=== PATIENT | female | born 1990 | race African-American/Black ===

== ENCOUNTER → 2018-03-01 | Outpatient (CLI) | payer SELFPAY ==
[2018-03-01 15:35] LABS: Basophils # (A) 0.1 k/uL (0-0.2); Basophils % (A) 0 %; Eosinophils # (A) 0.1 k/uL (0-0.7); Eosinophils % (A) 1 %; HCT 36.2 % (34.0-46.0); Lymphocytes # (A) 2.6 k/uL (1.0-4.8); Lymphocytes % (A) 21 %; MCH 30.5 pg (25.0-35.0); MCHC 33.3 g/dL (31.0-37.0); MCV 91.8 fL (80.0-100.0); Mean Platelet Volume 7.4; Monocytes # (A) 0.6 k/uL (0-1.0); Monocytes % (A) 4 %; Neutrophils # (A) 9.4 k/uL (1.3-7.7); Neutrophils % (A) 73 %; Platelet Count 263 k/uL (150-450); RBC 3.94 m/uL (3.80-5.40); RDW 12.6 % (11.5-15.5); WBC 12.8 k/uL (3.8-10.6)
== END | disposition home or self-care (01) ==
LOC: LABWHC1 14:55
PROVIDERS: ATTEND Obstetrics & Gynecology
DX: Z01.812 Encounter for preprocedural laboratory examination (principal); O02.1 Missed abortion; Z3A.00 Weeks of gestation of pregnancy not specified
CPT/HCPCS: 36415; 85025; 86850; 86900; 86901

== ENCOUNTER → 2018-03-02 | Day surgery (SDC) | payer OTHER ==
[~2018-03-02] MED LIST: Acetaminophen-Codeine 300-30mg TAB PO PRN; IBUPROFEN 600 MG TAB PO PRN; KETOROLAC 30 MG/ML 1 ML VIAL IVP PRN; KETOROLAC 30 MG/ML 1 ML VIAL ONE; LACTATED RINGERS 1,000 ML IV ONE; LACTATED RINGERS 1,000 ML IV SCH; LIDOCAINE 1% 20 ML VIAL (10MG/ML) FOR IV START INTRADERMA ONE; MEPERIDINE 50 MG/ML SYRINGE IVP ONE; METHYLERGONOVINE 0.2 MG/ML 1 ML AMP ONE; METOCLOPRAMIDE 5 MG/ML 2 ML VIAL IVP PRN; MIDAZOLAM 2 MG/2 ML VIAL IVP ONE; MIDAZOLAM 2 MG/2 ML VIAL ONE; ONDANSETRON 4 MG/2 ML VIAL IVP ONE; ONDANSETRON 4 MG/2 ML VIAL IVP PRN; PROPOFOL 10 MG/ML 20 ML VIAL IV ONE; SIMETHICONE 80 MG CHEWABLE PO PRN; diphenhydrAMINE 50 MG/ML 1 ML VIAL IVP PRN; fentaNYL (PF) 50 MCG/ML 2 ML AMP ONE
[2018-03-02 10:27] VITALS: TEMP 97.2
--- NOTE | 2018-03-02 10:28 | P.OP ---
Date of Procedure: 03/02/18 Preoperative Diagnosis: #1. 8+ weeks missed Postoperative Diagnosis: Same Procedure(s) Performed: #1. Dilation and aspiration curettage Anesthesia: other (Gen. by face mask) Surgeon: Gurprete Croft Estimated Blood Loss (ml): 500 IV fluids (ml): 700 Urine output (ml): 100 Pathology: other (Uterine contents) Condition: stable Disposition: PACU Operative Findings: Preoperatively, the patient had undergone an office ultrasound 1 week ago at approximately 8+ weeks which demonstrated a roughly 8 week crown-rump length with no heart rate present. She then underwent serial beta hCGs over the course of 3 days at which time the hormone level was noted to be falling. Both of these findings confirmed the diagnosis and the patient was counseled and agreed to undergo the procedure as outlined above. She was taken to the operating room where she was found preoperatively to have a roughly 8-9 week retroverted normal but slightly boggy uterus. Intraoperatively, the uterus sounded to approximately 13 cm. There was tissue seen passing through the tubing on the first 2 passes. The sharp curette produced a small amount of further tissue but the typical gritty texture was encountered throughout. Following sharp curettage, no further tissue was seen passing through the tubing. There was a moderate amount of bleeding with the case resulting in one dose of Methergine being given by anesthesia intraoperatively. Description of Procedure: The patient was prepped and draped in usual fashion after general anesthesia was administered by the anesthesiologist. A weighted speculum was placed and the bladder was drained of approximately 100 mL of clear ileana urine. The anterior lip of the cervix was grasped with a single-tooth tenaculum and the uterus was sounded to 13 cm as noted above. Serial dilation was carried out to admit a #9 curved aspiration curet which was placed to the fundus of the uterus and suction applied. Once adequate suction had been built, thorough and circumferential suction curettage was carried out from the fundus to the cervix with tissue seen passing through the tubing on a regular basis. A second pass was made at which time there was minimal further tissue passing through the tubing. The suction curet was set aside in favor of a sharp curet which was utilized to thoroughly and circumferentially curet the endometrial lining which had the typical gritty texture. There was a very small amount of tissue returned with this. 2 further passes were made with the aspiration curet to ensure no retained products. Following the procedure, the uterine size was moderately smaller than it had been prior to the case. A small point of bleeding at the site of the tenaculum was made hemostatic with pressure. There was no significant ongoing bleeding from the cervix or any other sites. Prior to finishing the case, as there was a moderate amount of bleeding throughout and the uterus continued to feel somewhat boggy, Methergine 0.2 mg had been given by the anesthesiologist. Estimated blood loss for the entire case was approximately 500 mL. There were no complications. All sponge, instrument, and needle counts were correct. The patient tolerated the procedure well and proceeded to the recovery room in stable condition.
[2018-03-02 10:41] VITALS: RESP 16
[2018-03-02 11:09] VITALS: BP 118/61; PULSE 57
== END | disposition home or self-care (01) ==
LOC: OR 08:06
PROVIDERS: ATTEND Obstetrics & Gynecology
DX: O02.1 Missed abortion (principal); F39 Unspecified mood [affective] disorder; F17.200 Nicotine dependence, unspecified, uncomplicated; Z79.899 Other long term (current) drug therapy
CPT/HCPCS: 88305; 59820; J2250; J2210; J2175; J2405; J3010; J1885; J2704

== ENCOUNTER 2018-03-06 09:57 | Emergency (ER) | payer BC, OTHER ==
[2018-03-06 10:08] VITALS: RESP 18
[2018-03-06 11:05] LABS: Basophils # (A) 0.1 k/uL (0-0.2); Basophils % (A) 1 %; Eosinophils % (A) 0 %; Lymphocytes # (A) 1.5 k/uL (1.0-4.8); Lymphocytes % (A) 18 %; MCH 30.3 pg (25.0-35.0); MCHC 32.5 g/dL (31.0-37.0); MCV 93.3 fL (80.0-100.0); Mean Platelet Volume 7.3; Monocytes # (A) 0.4 k/uL (0-1.0); Monocytes % (A) 5 %; Neutrophils # (A) 6.3 k/uL (1.3-7.7); Neutrophils % (A) 75 %; Platelet Count 246 k/uL (150-450); RBC 3.11 m/uL (3.80-5.40); WBC 8.4 k/uL (3.8-10.6)
[2018-03-06 11:07] LABS: HGB 9.4 gm/dL (11.4-16.0)
[2018-03-06 11:09] LABS: ALT 24 U/L (9-52); AST 13 U/L (14-36); Albumin 3.6 g/dL (3.5-5.0); Alkaline Phosphatase 50 U/L (38-126); Anion Gap 11 mmol/L; Blood Urea Nitrogen 6 mg/dL (7-17); Calcium 8.8 mg/dL (8.4-10.2); Carbon Dioxide 22 mmol/L (22-30); Chloride 109 mmol/L (98-107); Glucose 88 mg/dL (74-99); Potassium 3.9 mmol/L (3.5-5.1); Sodium 142 mmol/L (137-145); Total Bilirubin 0.3 mg/dL (0.2-1.3); Total Protein 6.3 g/dL (6.3-8.2)
[2018-03-06 12:26] VITALS: TEMP 98.2
[2018-03-06] MEDS ORDERED: SODIUM CHLORIDE 0.9% 1,000 ML IV STA (12:41)
--- NOTE | 2018-03-06 13:51 | ED ---
General Adult HPI - General Chief complaint: Vaginal Bleeding Stated complaint: Vaginal Bleeding-Post Op Time Seen by Provider: 03/06/18 12:33 Source: patient, RN notes reviewed Mode of arrival: ambulatory Limitations: no limitations - History of Present Illness Initial comments: Patient is a 28-year-old female presenting to the emergency room today with chief complaint of increased vaginal bleeding. She does admit that she had a D& C due to a miscarriage at 8 weeks 4 days ago. Patient says she's had some bleeding. She states proximal hour prior to arrival she had some heavy bleeding. She states she had to change multiple pads. Patient states she was bleeding slowed down at this point. She admits that she's had some cramping in the abdomen something different at this time. She denies any other complaints. Denies any dizziness or lightheadedness. Patient denies any recent fever, chills, shortness of breath, chest pain, back pain, dysuria or hematuria, constipation or diarrhea, headaches or visual changes, or any other complaints. - Related Data Home Medications Medication Instructions Recorded Confirmed Docusate [Colace] 100 mg PO DAILY 03/06/18 03/06/18 Allergies Allergy/AdvReac Type Severity Reaction Status Date / Time No Known Allergies Allergy Verified 03/06/18 11:47 Review of Systems ROS Statement: Those systems with pertinent positive or pertinent negative responses have been documented in the HPI. ROS Other: All systems not noted in ROS Statement are negative. Past Medical History Past Medical History: No Reported History History of Any Multi-Drug Resistant Organisms: None Reported Past Surgical History: Adenoidectomy Additional Past Surgical History / Comment(s): HX LEEP SURGERY, D&C Past Anesthesia/Blood Transfusion Reactions: No Reported Reaction Past Psychological History: ADD/ADHD, Anxiety, Bipolar, Depression Smoking Status: Current every day smoker Past Alcohol Use History: None Reported Past Drug Use History: Marijuana General Exam - General Exam Comments Initial Comments: General: The patient is awake and alert, in no distress, and does not appear acutely ill. Eye: Pupils are equal, round and reactive to light, extra-ocular movements are intact. No nystagmus. There is normal conjunctiva bilaterally. No signs of icterus. Ears, nose, mouth and throat: There are moist mucous membranes and no oral lesions. Neck: The neck is supple, there is no tenderness or JVD. Cardiovascular: There is a regular rate and rhythm. No murmur, rub or gallop is appreciated. Respiratory: Lungs are clear to auscultation, respirations are non-labored, breath sounds are equal. No wheezes, stridor, rales, or rhonchi. Gastrointestinal: Soft, non-distended, non-tender abdomen without masses or organomegaly noted. There is no rebound or guarding present. No CVA tenderness. Musculoskeletal: Normal ROM, no tenderness. Strength 5/5. Sensation intact. Pulses equal bilaterally 2+. Neurological: A&O x 3. CN II-XII intact, There are no obvious motor or sensory deficits. Coordination appears grossly intact. Speech is normal. Skin: Skin is warm and dry and no rashes or lesions are noted. Psychiatric: Cooperative, appropriate mood & affect, normal judgment. : DIRECTOR OF QUALITY IMPROVEMENTVICTOR MANUEL Butts present for exam. Patient did have a few small clots in the vaginal canal. No active bleeding at this time. Limitations: no limitations Course Vital Signs 03/06/18 03/06/18 10:06 12:14 Temperature 98.8 F 98.2 F Pulse Rate 93 70 Respiratory 18 18 Rate Blood Pressure 127/65 111/56 O2 Sat by Pulse 100 100 Oximetry Medical Decision Making - Medical Decision Making Options were discussed with patient about all shot at this time. Bleeding has essentially stopped here the emergency room. She denies any dizziness or lightheadedness. Her vitals are stable. Hemoglobin reviewed is 9.4. Patient has chronic ultrasound. States feels comfortable being discharged home to follow-up with COLLECTION SYSTEMS TECHNICIAN. She is advised to return if any symptoms increase or worsen or for any other concerns. - Lab Data Result diagrams: 03/06/18 10:38 03/06/18 10:38 Lab Results 03/06/18 03/06/18 Range/Units 10:38 10:38 WBC 8.4 (3.8-10.6) k/uL RBC 3.11 L (3.80-5.40) m/uL Hgb 9.4 L D (11.4-16.0) gm/dL Hct 29.0 L (34.0-46.0) % MCV 93.3 (80.0-100.0) fL MCH 30.3 (25.0-35.0) pg MCHC 32.5 (31.0-37.0) g/dL RDW 13.0 (11.5-15.5) % Plt Count 246 (150-450) k/uL Neutrophils % 75 % Lymphocytes % 18 % Monocytes % 5 % Eosinophils % 0 % Basophils % 1 % Neutrophils # 6.3 (1.3-7.7) k/uL Lymphocytes # 1.5 (1.0-4.8) k/uL Monocytes # 0.4 (0-1.0) k/uL Eosinophils # 0.0 (0-0.7) k/uL Basophils # 0.1 (0-0.2) k/uL Sodium 142 (137-145) mmol/L Potassium 3.9 (3.5-5.1) mmol/L Chloride 109 H (98-107) mmol/L Carbon Dioxide 22 (22-30) mmol/L Anion Gap 11 mmol/L BUN 6 L (7-17) mg/dL Creatinine 0.70 (0.52-1.04) mg/dL Est GFR (CKD-EPI)AfAm >90 (>60 ml/min/1.73 sqM) Est GFR (CKD-EPI)NonAf >90 (>60 ml/min/1.73 sqM) Glucose 88 (74-99) mg/dL Calcium 8.8 (8.4-10.2) mg/dL Total Bilirubin 0.3 (0.2-1.3) mg/dL AST 13 L (14-36) U/L ALT 24 (9-52) U/L Alkaline Phosphatase 50 (38-126) U/L Total Protein 6.3 (6.3-8.2) g/dL Albumin 3.6 (3.5-5.0) g/dL Disposition Clinical Impression: Vaginal bleeding Disposition: HOME SELF-CARE Condition: Good Instructions: Dysfunctional Uterine Bleeding (ED) Additional Instructions: Please follow-up the COLLECTION SYSTEMS TECHNICIAN tomorrow. Please return here to the emergency room if any symptoms increase or worsen or for any other concerns as discussed. Is patient prescribed a controlled substance at d/c from ED?: No Referrals: Costa Light MD [Primary Care Provider] - 1-2 days Gurpreet Croft MD [STAFF PHYSICIAN] - 1-2 days Time of Disposition: 13:50
[2018-03-06 14:09] VITALS: BP 118/73; PULSE 71
== END 2018-03-06 14:09 | disposition home or self-care (01) ==
LOC: EC 09:57
DX: N93.9 Abnormal uterine and vaginal bleeding, unspecified (principal); F17.200 Nicotine dependence, unspecified, uncomplicated; Z98.890 Other specified postprocedural states; Z79.899 Other long term (current) drug therapy
CPT/HCPCS: 36415; 80053; 85025; 99284

== ENCOUNTER 2019-02-04 13:21 | Outpatient (CLI) | payer OTHER ==
[2019-02-04 15:12] VITALS: BP 125/78; PULSE 100; RESP 16; TEMP 97.3
[2019-02-04] MEDS ORDERED: BETAMET ACET-BETAMETH SOD PHOS 6 MG/ML VIAL IM SCH (15:15)
--- NOTE | 2019-03-08 10:10 | P.MSEPDOC ---
Presenting Problems - Arrival Data Date of Arrival on Unit: 02/04/19 Time of Arrival on Unit: 13:21 Mode of Transport: Ambulatory - Complaint OB-Reason for Admission/Chief Complaint: Rule Out PROM Comment: pt arrived c/o a gush of fluid this morning Medical History - Information : 2 Para: 0 Term: 0 : 0 Abortions: Spontaneous or Elective: 1 Number of Living Children: 0 - Gestational Age Gestational Age by LEILANI (wks/days): 24 Weeks and 3 Days - History Complications: Smoker Review of Systems - Review of Systems Constitutional: No problems Breast: No problems ENT: No problems Cardiovascular: No problems Respiratory: No problems Gastrointestinal: No problems Genitourinary: No problems Musculoskeletal: No problems Neurological: No problems Skin: No problems Vital Signs - Temperature Temperature: 97.3 F Temperature Source: Oral - Pulse Right Brachial Pulse Rate: 100 Pulse Assessment Method: Automatic Cuff - Respirations Respiratory Rate: 16 Oxygen Delivery Method: Room Air - Blood Pressure Right Arm Blood Pressure: 125/78 Blood Pressure Mean: 93 Blood Pressure Source: Automatic Cuff Medical Screen Scoring (Pre) - Cervical Exam Dilation: 0 cm = 0 Membranes: Intact - Uterine Contractions Frequency: N/A Duration: N/A Intensity: N/A - Maternal Vital Signs Maternal Temperature: N/A Maternal Blood Pressure: N/A Signs of Preeclampsia: N/A Maternal Respirations: N/A - Maternal Trauma Maternal Trauma: N/A - Assessment Baseline FHR: 140 Position: N/A Station: N/A - Total Score Total Score (Pre): 0 - Level of Risk Level of Risk: Low (0-5) Physician Notification (Post) - Physician Notified Physician Notified Date: 02/04/19 Physician Notified Time: 15:15 Spoke With: dr pardo New Order Received: Yes - Notification Comment Comment: celestone 12mg now and return to L/D in 24 hrs for second dose of celestone. fibronectin. may discharge to home undelivered with instructions Disposition - Disposition OB Disposition: Discharge to home Discharge Date: 02/04/19 Discharge Time: 15:15 I agree with the RN Medical Screening Exam: Yes Risk & Benefit of care provided described in d/c instruction: Yes Diagnosis: RELATED CONDITIONS, UNSPECIFIED, SECOND TRIMESTER
== END 2019-02-04 15:15 | disposition home or self-care (01) ==
LOC: FBPOP 13:21
PROVIDERS: ATTEND Obstetrics & Gynecology
DX: O26.92 Pregnancy related conditions, unspecified, second trimester (principal); Z3A.24 24 weeks gestation of pregnancy
CPT/HCPCS: 84112; 82731; G0463; J0702; 99213

== ENCOUNTER 2019-02-05 15:25 | Outpatient (CLI) | payer OTHER ==
[2019-02-05] MEDS ORDERED: BETAMET ACET-BETAMETH SOD PHOS 6 MG/ML VIAL IM SCH (15:45)
--- NOTE | 2019-03-08 10:12 | P.MSEPDOC ---
Presenting Problems - Arrival Data Date of Arrival on Unit: 02/05/19 Time of Arrival on Unit: 15:30 Mode of Transport: Ambulatory - Complaint Comment: second celestone injection Physician Notification (Pre) - Physician Notified Physician Notified Date: 02/05/19 Physician Notified Time: 15:35 Physician/Practitioner Notifed:: char Spoke With: char New Order Received: Yes - Notification Comment Comment: no nst or monitoring required. second dose of celestone to be given and discharge pt home Disposition - Disposition OB Disposition: Discharge to home Discharge Date: 02/05/19 Discharge Time: 16:08 I agree with the RN Medical Screening Exam: Yes Risk & Benefit of care provided described in d/c instruction: Yes Diagnosis: RELATED CONDITIONS, UNSPECIFIED, SECOND TRIMESTER
== END 2019-02-05 16:11 | disposition home or self-care (01) ==
LOC: FBPOP 15:25
PROVIDERS: ATTEND Obstetrics & Gynecology
DX: O26.92 Pregnancy related conditions, unspecified, second trimester (principal); Z3A.00 Weeks of gestation of pregnancy not specified
CPT/HCPCS: 96372; J0702

== ENCOUNTER 2019-04-12 01:05 | Outpatient (CLI) | payer OTHER ==
[2019-04-12 01:53] VITALS: BP 132/77; PULSE 93; RESP 18; TEMP 96.6
--- NOTE | 2019-04-20 09:42 | P.MSEPDOC ---
Presenting Problems - Arrival Data Date of Arrival on Unit: 04/12/19 Time of Arrival on Unit: 01:05 Mode of Transport: Ambulatory - Complaint OB-Reason for Admission/Chief Complaint: Decreased Movement Comment: no movement felt since 1529 yesterday Medical History - Information : 2 Para: 0 Term: 0 : 0 Abortions: Spontaneous or Elective: 0 Number of Living Children: 0 - Gestational Age Gestational Age by LEILANI (wks/days): 34 Weeks and 0 Days - History Comment: shortened cervix, celestone shots have been given Review of Systems - Review of Systems Constitutional: No problems Breast: No problems ENT: No problems Cardiovascular: No problems Respiratory: No problems Gastrointestinal: No problems Genitourinary: No problems Musculoskeletal: No problems Neurological: No problems Skin: No problems Vital Signs - Temperature Temperature: 96.6 F Temperature Source: Temporal Artery Scan - Pulse Right Brachial Pulse Rate: 93 Pulse Assessment Method: Automatic Cuff - Respirations Respiratory Rate: 18 Oxygen Delivery Method: Room Air - Blood Pressure Right Arm Blood Pressure: 132/77 Blood Pressure Mean: 95 Blood Pressure Source: Automatic Cuff Medical Screen Scoring (Pre) - Cervical Exam Dilation: Exam Deferred Effacement: Exam Deferred Membranes: Intact - Uterine Contractions Frequency: N/A Duration: N/A Intensity: N/A - Maternal Vital Signs Maternal Temperature: N/A Maternal Blood Pressure: N/A Signs of Preeclampsia: N/A Maternal Respirations: N/A - Maternal Trauma Maternal Trauma: N/A - Assessment - Baby A Baseline FHR: 120 Heart Rate - NICHD Category: Category I (Normal) = 0 NST: Reactive Position: N/A Station: N/A - Total Score - Baby A Total Score - Baby A: 0 - Total Score - Baby B Total Score - Baby B: 0 - Total Score - Baby C Total Score - Baby C: 0 - Level of Risk - Baby A Level of Risk - Baby A: Low (0-5) - Level of Risk - Baby B Level of Risk - Baby B: Low (0-5) - Level of Risk - Baby C Level of Risk - Baby C: Low (0-5) Physician Notification (Pre) - Physician Notified Physician Notified Date: 04/12/19 Physician Notified Time: 01:34 Physician/Practitioner Notifed:: Dr. Guaman Spoke With: Dr. Guaman New Order Received: Yes - Notification Comment Comment: discharge pt home, follow up at next scheduled appt Disposition - Disposition OB Disposition: Triage, Discharge to home, Written follow up instructions reviewed Discharge Date: 04/12/19 Discharge Time: 01:42 I agree with the RN Medical Screening Exam: Yes Risk & Benefit of care provided described in d/c instruction: Yes Diagnosis: DECREASED MOVEMENTS, THIRD TRIMESTER, FETUS 1
== END 2019-04-12 01:42 | disposition home or self-care (01) ==
LOC: FBPOP 01:05
PROVIDERS: ATTEND Obstetrics & Gynecology
DX: O36.8131 Decreased fetal movements, third trimester, fetus 1 (principal); Z3A.34 34 weeks gestation of pregnancy
CPT/HCPCS: 59025; G0463; 99213

== ENCOUNTER 2019-05-16 14:32 | Inpatient (IN) | payer OTHER ==
--- NOTE | 2019-05-16 15:53 | US ---
EXAMINATION TYPE: US OB limited DATE OF EXAM: 05/16/2019 COMPARISON: US CLINICAL HISTORY: unable to obtain heart tones. EXAM PERFORMED: Transabdominal (TA) limited US for heart rate GESTATIONAL AGE / DATING Physician Established: (38 weeks/6 days) EDC: 05/24/19 Dates by Current Scan: Not assessed No growth performed on today?s study SURVEY (PRESENTATION: Vertex HEART RATE: no heart rate is detected by color flow in any body cavity or in [address] to assess rate rate. Patient's RN notified of STAT US tech findings at exam's end of very limited OB US. IMPRESSION: Limited survey. Findings compatible with demise.
[2019-05-16] MEDS ORDERED: OXYTOCIN 10 UNIT/ML 1 ML VIAL IM PRN (16:27)
[2019-05-16] MEDS ORDERED: METHYLERGONOVINE 0.2 MG/ML 1 ML AMP IM PRN (16:27)
[2019-05-16] MEDS ORDERED: CARBOPROST TROMETHAMINE 250 MCG/ML 1 ML AMP IM PRN (16:27)
[2019-05-16] MEDS ORDERED: TERBUTALINE 1 MG/ML VIAL SQ PRN (16:27)
[2019-05-16] MEDS ORDERED: LIDOCAINE 0.5% (PF) 5 MG/ML (50 ML SDV) SQ PRN (16:27)
[2019-05-16] MEDS ORDERED: OXYTOCIN 30 UNITS/500 ML NS 30 UNIT in SALINE 1 500ML.BAG IV SCH (16:30)
[2019-05-16] MEDS ORDERED: LACTATED RINGERS 1,000 ML IV SCH (16:30)
--- NOTE | 2019-05-16 16:41 | P.HPOB ---
History of Present Illness H&P Date: 05/16/19 Chief Complaint: 38-5/7 weeks, documented demise Patient is a 29-year-old 2 para 0010 admitted at 38-5/7 weeks as established by last menstrual period and confirmed by 11 week ultrasound. She is admitted with a complaint of decreased movement for less than 24 hours and found with no heart rate both on Doppler and confirmed by bedside ultrasound. She denies any history of trauma, drugs, or anything else unusual and the last 24 hours. She was last seen in the office yesterday for an appointment at 10:30 in the morning at which time heart tones were documented and a date set for induction next week. Her has been complicated by a history of a short cervical measurement with funneling of the membranes beginning at 19+ weeks. She was followed for the majority of the second and third trimester by maternal medicine with progesterone supplementation which was ultimately stopped at approximately 36 weeks of gestation. Aside from this, her has been uncomplicated. She does have a long-standing history of some psychiatric concerns and has been admitted as an inpatient in the past. Obstetrical history: 2 para 0010 with 1 previous early miscarriage requiring D&C. Current statistics are listed in history present illness. EDC of 05/24/2019 was established by last menstrual period and confirmed by an 11 week ultrasound. Laboratory workup demonstrates a blood type of A+ with a negative antibody screen. Rubella status is immune. The remainder of the laboratory workup was within normal limits aside from a positive urine drug screen for cannabinoids. One hour Glucola was within normal limits and group B strep status is negative. Gynecologic history: Unremarkable with no history of any infections to include STDs. Review of Systems Review of systems is confined to history of present illness. Past Medical History Past Medical History: No Reported History History of Any Multi-Drug Resistant Organisms: None Reported Past Surgical History: Adenoidectomy Additional Past Surgical History / Comment(s): HX LEEP SURGERY, D&C Past Anesthesia/Blood Transfusion Reactions: No Reported Reaction Smoking Status: Current every day smoker Medications and Allergies Home Medications Medication Instructions Recorded Confirmed Type Pnv,Calcium 72/Iron/Folic Acid 1 each PO DAILY 02/04/19 05/16/19 History [ Plus Tablet] Sertraline [Zoloft] 100 mg PO DAILY 02/04/19 05/16/19 History Allergies Allergy/AdvReac Type Severity Reaction Status Date / Time No Known Allergies Allergy Verified 05/16/19 15:04 Exam Vital Signs Temp Pulse Resp BP 05/16/19 15:07 98.8 F 92 18 117/60 Intake and Output 05/16/19 05/16/19 05/16/19 06:59 14:59 22:59 Other: Weight 97.976 kg In general, this is a well-developed well-nourished woman in appropriate distress as she is grieving the loss of her unborn baby. Her heart has a regular rhythm and rate without murmur. Her lungs are clear to auscultation bilaterally in all mendez. Her abdomen is gravid, nondistended, has normal active bowel sounds, soft, nontender, and without any palpable masses aside from uterine fundus. Her extremities are without any cyanosis, clubbing, or edema and are nontender to palpation bilaterally. Digital cervical examination demonstrates her cervix to be 2 cm dilated, 90% effaced, the vertex in presentation at -1 station. Artificial rupture of membranes is carried out demonstrating meconium-stained fluid. Assessment and Plan (1) demise Current Visit: Yes Status: Acute Code(s): QQI3308 - SNOMED Code(s): 692314946 (2) 38 weeks gestation of Current Visit: Yes Status: Acute Code(s): Z3A.38 - 38 WEEKS GESTATION OF SNOMED Code(s): 35620081 Plan: The patient is admitted for induction of labor. I have discussed with her that the most likely finding will be a cord accident of some sort. She is a candidate for either IV or epidural analgesia and will be offered either should she choose. We will have expectant management. I will prophylactically ask for a psychiatry consultation in order to potentially preempt ongoing problems in the future. Urine drug screen has been done per protocol. Further evaluation will await delivery of the .
[2019-05-16 16:50] LABS: Amphetamine Screen,Urine Not Detected (NotDetected); Barbiturate Screen,Urine Not Detected (NotDetected); Benzodiazepines Screen,Urine Not Detected (NotDetected); Cocaine Screen,Urine Not Detected (NotDetected); Methadone Screen, Urine Not Detected (NotDetected); Opiate Screen,Urine Not Detected (NotDetected); Oxycodone Screen, Urine Not Detected (NotDetected); Phencyclidine Screen,Urine Not Detected (NotDetected); Tricyclic Antidepressant,Urine Not Detected (NotDetected); Urn Cannabinoid Scrn Detected (NotDetected)
[2019-05-16 16:56] VITALS: BMI 33.8
[2019-05-16] MEDS ORDERED: BUTORPHANOL 1 MG/ML 1 ML VIAL IV PRN (17:25)
[2019-05-16 18:51] LABS: Basophils # (A) 0.1 k/uL (0-0.2); Basophils % (A) 0 %; Eosinophils # (A) 0.2 k/uL (0-0.7); Eosinophils % (A) 1 %; HCT 36.1 % (34.0-46.0); HGB 11.9 gm/dL (11.4-16.0); Lymphocytes # (A) 3.1 k/uL (1.0-4.8); Lymphocytes % (A) 16 %; MCH 31.5 pg (25.0-35.0); MCHC 32.9 g/dL (31.0-37.0); MCV 95.6 fL (80.0-100.0); Mean Platelet Volume 7.9; Monocytes % (A) 5 %; Neutrophils # (A) 15.5 k/uL (1.3-7.7); Neutrophils % (A) 77 %; Platelet Count 283 k/uL (150-450); RBC 3.78 m/uL (3.80-5.40); RDW 13.4 % (11.5-15.5); WBC 20.1 k/uL (3.8-10.6)
[2019-05-16] MEDS ORDERED: diphenhydrAMINE 50 MG/ML 1 ML VIAL IVP PRN ×2 (19:27)
[2019-05-16] MEDS ORDERED: diphenhydrAMINE 25 MG CAP PO PRN (19:27)
[2019-05-16] MEDS ORDERED: ZOLPIDEM 5 MG TAB PO PRN (19:27)
[2019-05-16] MEDS ORDERED: diphenhydrAMINE 50 MG CAP PO PRN (19:27)
[2019-05-16] MEDS ORDERED: WITCH HAZEL 1 EACH MED..PAD TOPICAL PRN (19:27)
[2019-05-16] MEDS ORDERED: HYDROCORTISONE 2.5% RECTAL CREAM 30 GM TUBE RECTAL PRN (19:27)
[2019-05-16] MEDS ORDERED: SIMETHICONE 80 MG CHEWABLE PO PRN (19:27)
[2019-05-16] MEDS ORDERED: BENZOCAINE/MENTHOL SPRAY 1 GM/SPRAY AEROSOL TOPICAL PRN (19:27)
[2019-05-16] MEDS ORDERED: IBUPROFEN 600 MG TAB PO PRN (19:27)
[2019-05-16] MEDS ORDERED: ACETAMINOPHEN TAB 325 MG TAB PO PRN (19:27)
[2019-05-16] MEDS ORDERED: OXYTOCIN 20 UNITS/1000 ML NS 1,000 ML IV SCH (19:30)
--- NOTE | 2019-05-16 19:33 | P.PROBDLV ---
Vaginal Delivery Note - . Vaginal Delivery Note: The patient is a 29-year-old 2 para 0010 admitted at 38-5/7 weeks by good dating parameters. She is admitted to triage initially with a complaint of decreased movement for all of today. Heart tones were unable to be identified either with Doppler with bedside ultrasound making the diagnosis of intrauterine demise. She was therefore admitted for induction of labor. Her was otherwise uncomplicated though she had concerns for a short c ervical length with funneling of the membranes beginning at 19 weeks. This was treated with bedrest and vaginal progesterone until 36 weeks without difficulty. She also has a history of some psychiatric concerns with significant depression and anxiety having been hospitalized in the past. She did not require any significant interventions during the aside from using Zoloft. On labor and delivery, she had artificial rupture of membranes carried out demonstrating what appeared to be meconium-stained fluid. Without Pitocin, she made rapid progress through the latent and active phase of labor to complete and then pushed over the course of approximately 10 minutes to a normal spontaneous vaginal delivery of a nonviable female infant, weight has not yet been checked in the occiput anterior position. During the process of delivering the placenta, the cord lacerated at the insertion to the placenta requiring manual extraction of the placenta which appeared to be otherwise intact. The area where the laceration occurred appeared to likely have been velamentous in its insertion. There was no evidence of any cord knots. The placenta was significantly calcified but otherwise appeared intact and normal. Examination of the infant demonstrated a grossly normal female with some sloughing of the skin being the only abnormality noted. There were no lacerations of the perineum, vagina, or cervix. Estimated blood loss for the case is approximately 500 mL. There were no complications aside from the need for manual extraction of the placenta. All sponge, instrument, and needle counts were correct. The patient is resting comfortably in recovery and appears to be grieving appropriately. She has a number of family members present with her.
[2019-05-16] MEDS: SENNOSIDES-DOCUSATE SODIUM 1 EACH TAB PO SCH (23:06)
[2019-05-17 07:39] VITALS: TEMP 97.8
[2019-05-17] MEDS: SENNOSIDES-DOCUSATE SODIUM 1 EACH TAB PO SCH (08:08)
[2019-05-17 08:44] VITALS: BP 124/75; PULSE 80; RESP 18
--- NOTE | 2019-05-17 12:11 | P.DS ---
Providers Date of admission: 05/16/19 15:40 Expected date of discharge: 05/17/19 Attending physician: Gurpreet Croft Consults: 05/16/19 16:30 Consult Physician Routine Consulting Provider: Omar Nichols Consult Reason/Comments: Long-standing history of mental illness, demise at 38+ weeks Do you want consulting provider notified?: Yes Primary care physician: Stated None - Discharge Diagnosis(es) (1) demise Status: Acute (2) 38 weeks gestation of Status: Acute Hospital Course: The patient is a 29-year-old 2 para 0010 admitted at 38-5/7 weeks by good dating parameters. She was seen in the office one day prior to admission at which time all findings were normal. She presented to triage in labor and delivery with a complaint of decreased movement at which time a demise was diagnosed by ultrasound. She is admitted for induction of labor with a very favorable cervix. She underwent artificial rupture of membranes demonstrating what appeared to be meconium-stained fluid. She made rapid progress through labor over the course of approximately 1-2 hours and then pushed to a normal spontaneous vaginal delivery of a nonviable 7 lbs. 11 oz. female. She did require manual removal of the placenta as the cord lacerated at the insertion into the placental disc. She had some short-term bleeding following delivery which resolved with IM Methergine. She was deemed stable for discharge the morning after delivery and was discharged home to follow-up in the office in 6 weeks' time routinely. A psychiatry consultation had been ordered as the patient has a long-standing history of depression and anxiety but was not completed prior to the patient's discharge. She is instructed to call for any significantly increased bleeding or foul-smelling lochia, fever, abdominal pain, perineal complaints, breast complaints, or anything else that concerned her. She was specifically counseled on calling for any psychiatric concerns. She understood her instructions and agrees to follow up as noted above. Discharge medications included only [id number] analgesic pain medications as necessary. Maternal blood type is Rh+ and rubella status is immune. Procedures: #1. Artificial rupture of membranes #2. Normal spontaneous vaginal delivery Patient Condition at Discharge: Stable Plan - Discharge Summary New Discharge Prescriptions: No Action Sertraline [Zoloft] 100 mg PO DAILY Pnv,Calcium 72/Iron/Folic Acid [ Plus Tablet] 1 each PO DAILY Discharge Medication List Pnv,Calcium 72/Iron/Folic Acid [ Plus Tablet] 1 each PO DAILY 02/04/19 [History] Sertraline [Zoloft] 100 mg PO DAILY 02/04/19 [History] Follow up Appointment(s)/Referral(s): Gurpreet Croft MD [STAFF PHYSICIAN] - 6 Weeks Discharge Disposition: HOME SELF-CARE
== END 2019-05-17 09:20 | disposition home or self-care (01) | DRG 806 ==
LOC: FBPOP 14:32 → 4FBP 15:40
PROVIDERS: ADMIT Obstetrics & Gynecology; ATTEND Obstetrics & Gynecology
PROC: 10907ZC Drainage of Amniotic Fluid, Therapeutic from Products of Conception, Via Natural or Artificial Opening (ICD-10-PCS; principal; 2019-05-16)
PROC: 10D17Z9 Manual Extraction of Products of Conception, Retained, Via Natural or Artificial Opening (ICD-10-PCS; principal; 2019-05-16)
PROC: 10E0XZZ Delivery of Products of Conception, External Approach (ICD-10-PCS; principal; 2019-05-16)
DX: O36.4XX0 Maternal care for intrauterine death, not applicable or unspecified (principal); O72.1 Other immediate postpartum hemorrhage; Z37.1 Single stillbirth; O99.344 Other mental disorders complicating childbirth; F32.9 Major depressive disorder, single episode, unspecified; F41.9 Anxiety disorder, unspecified; O77.0 Labor and delivery complicated by meconium in amniotic fluid; O99.334 Smoking (tobacco) complicating childbirth; F17.200 Nicotine dependence, unspecified, uncomplicated; Z3A.38 38 weeks gestation of pregnancy; Z79.899 Other long term (current) drug therapy; Z98.890 Other specified postprocedural states
CPT/HCPCS: 76815; 80306; 85025; 86850; 86900; 86901; 88307; 99213

== ENCOUNTER 2019-08-16 01:52 | Emergency (ER) | payer OTHER ==
[2019-08-16 02:31] LABS: Amphetamine Screen,Urine Not Detected (NotDetected); Barbiturate Screen,Urine Not Detected (NotDetected); Benzodiazepines Screen,Urine Not Detected (NotDetected); Cocaine Screen,Urine Not Detected (NotDetected); Methadone Screen, Urine Not Detected (NotDetected); Opiate Screen,Urine Not Detected (NotDetected); Oxycodone Screen, Urine Not Detected (NotDetected); Phencyclidine Screen,Urine Not Detected (NotDetected); Tricyclic Antidepressant,Urine Not Detected (NotDetected); Urn Cannabinoid Scrn Detected (NotDetected)
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
[2019-08-16 03:40] LABS: Appearance,Urine Cloudy (Clear); Bilirubin,Urine Negative (Negative); Blood,Urine Negative (Negative); Color,Urine Yellow; Glucose,Urine (UA) Negative (Negative); Ketones,Urine Negative (Negative); Leukocyte Esterase,Urine Negative (Negative); Mucus,Urine Many /hpf; Nitrite,Urine Negative (Negative); Protein,Urine Trace (Negative); RBC,Urine 2 /hpf (0-5); Specific Gravity,Urine 1.023 (1.001-1.035); Squamous Epithelial Cell,Urine 19 /hpf (0-4); Urobilinogen,Urine <2.0 mg/dL (<2.0); WBC,Urine 2 /hpf (0-5)
[2019-08-16 03:41] LABS: Basophils # (A) 0.1 k/uL (0-0.2); Basophils % (A) 1 %; Eosinophils # (A) 0.2 k/uL (0-0.7); Eosinophils % (A) 2 %; HCT 35.3 % (34.0-46.0); HGB 11.2 gm/dL (11.4-16.0); Lymphocytes % (A) 24 %; MCH 29.6 pg (25.0-35.0); MCHC 31.8 g/dL (31.0-37.0); MCV 93.2 fL (80.0-100.0); Mean Platelet Volume 6.2; Monocytes # (A) 0.5 k/uL (0-1.0); Monocytes % (A) 4 %; Neutrophils # (A) 8.4 k/uL (1.3-7.7); Neutrophils % (A) 68 %; Platelet Count 362 k/uL (150-450); RBC 3.78 m/uL (3.80-5.40); RDW 14.3 % (11.5-15.5); WBC 12.3 k/uL (3.8-10.6)
[2019-08-16 03:50] LABS: ALT 25 U/L (9-52); AST 24 U/L (14-36); African American GFR (CKD) >90 (>60 ml/min/1.73 sqM); Albumin 3.7 g/dL (3.5-5.0); Alkaline Phosphatase 56 U/L (38-126); Anion Gap 7 mmol/L; Blood Urea Nitrogen 12 mg/dL (7-17); Calcium 8.8 mg/dL (8.4-10.2); Carbon Dioxide 22 mmol/L (22-30); Chloride 113 mmol/L (98-107); Glucose 94 mg/dL (74-99); Potassium 3.7 mmol/L (3.5-5.1); Sodium 142 mmol/L (137-145); Total Bilirubin 0.2 mg/dL (0.2-1.3); Total Protein 6.6 g/dL (6.3-8.2)
[2019-08-16 08:36] VITALS: BP 134/87; PULSE 88; RESP 18; TEMP 98.8
[2019-08-16] MEDS ORDERED: LORazepam 2 MG/ML INJ IM STA (09:11)
== END 2019-08-16 12:03 ==
LOC: EC 01:52
DX: R45.851 Suicidal ideations (principal); F41.9 Anxiety disorder, unspecified; F31.9 Bipolar disorder, unspecified; F17.200 Nicotine dependence, unspecified, uncomplicated; Z79.899 Other long term (current) drug therapy
CPT/HCPCS: 82075; 36415; 80053; 85025; 81001; 81025; 80306; 99285; 96372; J2060

== ENCOUNTER 2020-04-11 23:19 | Emergency (ER) | payer OTHER ==
[2020-04-11 23:28] VITALS: BP 120/74; PULSE 66; RESP 18; TEMP 98.3
--- NOTE | 2020-04-11 23:47 | ED ---
General Adult HPI - General Chief complaint: Abdominal Pain Stated complaint: 18 Wks Preg, Abdominal Pain Time Seen by Provider: 04/11/20 23:34 Source: patient Mode of arrival: ambulatory Limitations: no limitations - History of Present Illness Initial comments: Adriana is a female currently 18w gestation with a twin . Patient reports that earlier today she had bent over and when she stood she felt a popping in the left side of her abdomen. She states that since that time she has noticed decreased movement on the left and wanted the baby to be checked. Denies any cramping or discomfort. She denies any vaginal discharge or bleeding. She's been following regularly with maternal- medicine. She was last was last year and resulted in a spontaneous at 38 weeks gestation. - Related Data Home Medications Medication Instructions Recorded Confirmed Escitalopram [Lexapro] 5 mg PO DAILY 08/16/19 08/16/19 lamoTRIgine [LaMICtal] 100 mg PO DAILY 08/16/19 08/16/19 Allergies Allergy/AdvReac Type Severity Reaction Status Date / Time No Known Allergies Allergy Verified 04/11/20 23:32 Review of Systems ROS Statement: Those systems with pertinent positive or pertinent negative responses have been documented in the HPI. ROS Other: All systems not noted in ROS Statement are negative. Past Medical History Past Medical History: No Reported History History of Any Multi-Drug Resistant Organisms: None Reported Past Surgical History: Adenoidectomy Additional Past Surgical History / Comment(s): HX LEEP SURGERY, D&C Past Anesthesia/Blood Transfusion Reactions: No Reported Reaction Past Psychological History: ADD/ADHD, Anxiety, Bipolar, Depression Smoking Status: Current every day smoker Past Alcohol Use History: None Reported Past Drug Use History: Marijuana - Past Family History Mother Family Medical History: No Reported History General Exam - General Exam Comments Initial Comments: Physical Exam GENERAL: Patient is well-developed and well-nourished. Patient is nontoxic and well-hydrated and is in no distress. HENT: Normocephalic, Atraumatic. EYES: PERRL, EOMI PULMONARY: Unlabored respirations. CARDIOVASCULAR: RRR Warm and well perfused extremities ABDOMEN: Gravid abdomen Nontender SKIN: No rashes or bruising : Deferred NEUROLOGIC: Alert and oriented Normal speech Normal gait MUSCULOSKELETAL: Moving all extremities with no apparent injury PSYCHIATRIC: No SI/HI Limitations: no limitations Course Vital Signs 04/11/20 23:24 Temperature 98.3 F Pulse Rate 66 Respiratory 18 Rate Blood Pressure 120/74 O2 Sat by Pulse 100 Oximetry Medical Decision Making - Medical Decision Making The patient was seen and evaluated history is obtained from the patient excited bedside ultrasound revealed 2 very active fetus, left fetus has a heart rate in the 150s noted on bedside ultrasound, right fetus has a heart rate in the 160s on ultrasound. Both are very active and moving. Mother felt very reassured by this bed side ultrasound and at this time is asking to be discharged home. Patient plans to follow with maternal med twin on Monday for reevaluation. Disposition Clinical Impression: Decreased movement during in second trimester, antepartum Disposition: HOME SELF-CARE Condition: Stable Additional Instructions: Call Dr Crespo or [facility] on Monday for follow up visit and formal ultrasound Is patient prescribed a controlled substance at d/c from ED?: No Referrals: Costa Light MD [Primary Care Provider] - 1-2 days
== END 2020-04-11 23:55 | disposition home or self-care (01) ==
LOC: EC 23:19
DX: O36.8120 Decreased fetal movements, second trimester, not applicable or unspecified (principal); O30.002 Twin pregnancy, unspecified number of placenta and unspecified number of amniotic sacs, second trimester; O99.342 Other mental disorders complicating pregnancy, second trimester; F41.9 Anxiety disorder, unspecified; F31.9 Bipolar disorder, unspecified; O99.332 Smoking (tobacco) complicating pregnancy, second trimester; F17.200 Nicotine dependence, unspecified, uncomplicated; Z79.899 Other long term (current) drug therapy; Z3A.18 18 weeks gestation of pregnancy
CPT/HCPCS: 99283

== ENCOUNTER 2020-05-11 09:07 | Outpatient (CLI) | payer OTHER ==
[2020-05-11 10:36] VITALS: BP 114/66; PULSE 77; RESP 16; TEMP 98.3
--- NOTE | 2020-05-29 19:14 | P.MSEPDOC ---
Presenting Problems - Arrival Data Date of Arrival on Unit: 05/11/20 Time of Arrival on Unit: 09:10 Mode of Transport: Ambulatory - Complaint OB-Reason for Admission/Chief Complaint: Decreased Movement Comment: pt arrived to unit 22 week gestation with twins c/o decreased movement Medical History - Information : 3 Para: 0 Term: 0 : 0 Abortions: Spontaneous or Elective: 1 Number of Living Children: 0 - Gestational Age Gestational Age by LEILANI (wks/days): 22 Weeks and 4 Days Review of Systems - Review of Systems Constitutional: No problems Breast: No problems ENT: No problems Cardiovascular: No problems Respiratory: No problems Gastrointestinal: No problems Genitourinary: No problems Musculoskeletal: No problems Neurological: No problems Skin: No problems Vital Signs - Temperature Temperature: 98.3 F Temperature Source: Oral - Pulse Right Brachial Pulse Rate: 77 Pulse Assessment Method: Automatic Cuff - Respirations Respiratory Rate: 16 Oxygen Delivery Method: Room Air - Blood Pressure Right Arm Blood Pressure: 114/66 Blood Pressure Mean: 82 Blood Pressure Source: Automatic Cuff Medical Screen Scoring (Pre) - Cervical Exam Dilation: Exam Deferred Effacement: Exam Deferred Membranes: Intact - Uterine Contractions Frequency: N/A - Maternal Vital Signs Maternal Temperature: N/A Signs of Preeclampsia: N/A Maternal Respirations: N/A - Maternal Trauma Maternal Trauma: N/A - Assessment - Baby A Baseline FHR: 135 - Assessment - Baby B Baseline FHR: 140 - Total Score - Baby A Total Score - Baby A: 0 - Total Score - Baby B Total Score - Baby B: 0 - Total Score - Baby C Total Score - Baby C: 0 - Level of Risk - Baby A Level of Risk - Baby A: Low (0-5) - Level of Risk - Baby B Level of Risk - Baby B: Low (0-5) - Level of Risk - Baby C Level of Risk - Baby C: Low (0-5) Physician Notification (Pre) - Physician Notified Physician Notified Date: 05/11/20 Physician Notified Time: 10:20 New Order Received: Yes - Notification Comment Comment: efm applied with both babies doppler infant moving. may discharge to home with instructions Disposition - Disposition OB Disposition: Discharge to home Discharge Date: 05/11/20 Discharge Time: 10:22 I agree with the RN Medical Screening Exam: Yes Risk & Benefit of care provided described in d/c instruction: Yes Diagnosis: DECREASED MOVEMENTS, SECOND TRIMESTER, FETUS 1
== END 2020-05-11 10:22 | disposition home or self-care (01) ==
LOC: FBPOP 09:07
PROVIDERS: ATTEND Obstetrics & Gynecology
DX: O36.8121 Decreased fetal movements, second trimester, fetus 1 (principal); Z3A.22 22 weeks gestation of pregnancy
CPT/HCPCS: 99213

== ENCOUNTER 2020-06-27 22:38 | Outpatient (CLI) | payer OTHER ==
[2020-06-27] MEDS ORDERED: LACTATED RINGERS 1,000 ML IV SCH (23:30)
[2020-06-27 23:58] LABS: Appearance,Urine Clear (Clear); Bacteria,Urine Rare /hpf; Bilirubin,Urine Negative (Negative); Blood,Urine Negative (Negative); Color,Urine Colorless; Glucose,Urine (UA) Negative (Negative); Ketones,Urine Negative (Negative); Leukocyte Esterase,Urine Large (Negative); Nitrite,Urine Negative (Negative); Protein,Urine Negative (Negative); RBC,Urine 3 /hpf (0-5); Specific Gravity,Urine 1.002 (1.001-1.035); Squamous Epithelial Cell,Urine 4 /hpf (0-4); Urobilinogen,Urine <2.0 mg/dL (<2.0); WBC,Urine 21 /hpf (0-5)
[2020-06-28 00:12] VITALS: BP 114/56; PULSE 85; RESP 16; TEMP 98.3
--- NOTE | 2020-07-23 17:06 | P.MSEPDOC ---
Presenting Problems - Arrival Data Date of Arrival on Unit: 06/28/20 Time of Arrival on Unit: 22:38 Mode of Transport: Wheelchair - Complaint OB-Reason for Admission/Chief Complaint: Pain Comment: Pt c/o pain in pelvic area, intermittent back pain Medical History - Information : 3 Para: 1 Term: 1 : 0 Abortions: Spontaneous or Elective: 1 Number of Living Children: 0 - Gestational Age Gestational Age by LEILANI (wks/days): 29 Weeks and 3 Days - History Complications: Other Comment: short cervix, hx of full term demise Review of Systems - Review of Systems Constitutional: No problems Breast: No problems ENT: No problems Cardiovascular: No problems Respiratory: No problems Gastrointestinal: No problems Genitourinary: No problems Musculoskeletal: No problems Neurological: No problems Skin: No problems Vital Signs - Temperature Temperature: 98.3 F Temperature Source: Oral - Pulse Right Radial Pulse Rate: 85 Pulse Assessment Method: Pulse Oximetry - Respirations Respiratory Rate: 16 Oxygen Delivery Method: Room Air O2 Sat by Pulse Oximetry: 97 - Blood Pressure Right Arm Blood Pressure: 114/56 Blood Pressure Mean: 75 Blood Pressure Source: Automatic Cuff Medical Screen Scoring (Pre) - Cervical Exam Dilation: Exam Deferred Effacement: Exam Deferred Membranes: Intact - Uterine Contractions Frequency: N/A Duration: N/A Intensity: N/A - Maternal Vital Signs Maternal Temperature: N/A Maternal Blood Pressure: N/A Signs of Preeclampsia: N/A Maternal Respirations: N/A - Maternal Trauma Maternal Trauma: N/A - Assessment - Baby A Position: N/A Station: N/A - Total Score - Baby A Total Score - Baby A: 0 - Total Score - Baby B Total Score - Baby B: 0 - Total Score - Baby C Total Score - Baby C: 0 - Level of Risk - Baby A Level of Risk - Baby A: Low (0-5) - Level of Risk - Baby B Level of Risk - Baby B: Low (0-5) - Level of Risk - Baby C Level of Risk - Baby C: Low (0-5) Physician Notification (Pre) - Physician Notified Physician Notified Date: 06/27/20 Physician Notified Time: 23:29 New Order Received: Yes - Notification Comment Comment: Obtain FFN, sterile vag exam, start IV and give 1L bolus of LR. Offer IV tylenol if pt would like it. Medical Screen Scoring (Post) - Cervical Exam Dilation: 1-3 cm = 1 Membranes: Intact - Uterine Contractions Frequency: > 5 minutes apart = 1 Duration: > 40 seconds = 2 Intensity: N/A - Maternal Vital Signs Maternal Temperature: N/A Maternal Blood Pressure: N/A Signs of Preeclampsia: N/A Maternal Respirations: N/A - Pain Assessment Pain Scale Used: Numeric (1 - 10) Pain Intensity: 3 Pain Management Goal: 3 Pain Description: *Acute Pain Frequency: Constant Non-Pharmacological Interventions: Darkened Room, Distraction, Heat - Maternal Trauma Maternal Trauma: N/A - Assessment - Baby A Position: N/A Station: N/A - Total Score Total Score - Baby A: 4 Total Score - Baby B: 4 Total Score - Baby C: 4 - Post Treatment Level of Risk Post Treatment Level of Risk - Baby A: Low (0-5) Post Treatment Level of Risk - Baby B: Low (0-5) Post Treatment Level of Risk - Baby C: Low (0-5) Physician Notification (Post) - Physician Notified Physician Notified Date: 06/28/20 Physician Notified Time: 01:05 Physician/Practitioner Notified:: Mary Spoke With: Mary New Order Received: Yes - Notification Comment Comment: DC home with DC instructions (pelvic rest, drink fluids, empty bladder at least Q2H) - see obix charting for more details. Disposition - Disposition OB Disposition: Discharge to home Discharge Date: 06/28/20 Discharge Time: 01:22 I agree with the RN Medical Screening Exam: Yes Risk & Benefit of care provided described in d/c instruction: Yes Diagnosis: FALSE LABOR BEFORE 37 COMPLETED WEEKS OF GEST, THIRD TRI
== END 2020-06-28 01:22 | disposition home or self-care (01) ==
LOC: FBPOP 22:38
PROVIDERS: ATTEND Obstetrics & Gynecology Obstetrics
DX: O47.03 False labor before 37 completed weeks of gestation, third trimester (principal); Z3A.29 29 weeks gestation of pregnancy
CPT/HCPCS: 96360; 82731; 81001; G0463; 96361; 99213; 99214

== ENCOUNTER 2020-07-13 20:03 | Outpatient (CLI) | payer OTHER ==
[2020-07-13 21:30] LABS: Basophils # (A) 0.1 k/uL (0-0.2); Basophils % (A) 0 %; Eosinophils # (A) 0.1 k/uL (0-0.7); Eosinophils % (A) 1 %; HGB 10.4 gm/dL (11.4-16.0); Lymphocytes # (A) 3.2 k/uL (1.0-4.8); Lymphocytes % (A) 21 %; MCH 32.1 pg (25.0-35.0); MCHC 33.4 g/dL (31.0-37.0); MCV 96.1 fL (80.0-100.0); Mean Platelet Volume 8.1; Monocytes # (A) 0.7 k/uL (0-1.0); Monocytes % (A) 5 %; Neutrophils # (A) 10.9 k/uL (1.3-7.7); Neutrophils % (A) 72 %; Platelet Count 280 k/uL (150-450); RBC 3.23 m/uL (3.80-5.40); WBC 15.2 k/uL (3.8-10.6)
[2020-07-13] MEDS ORDERED: BETAMET ACET-BETAMETH SOD PHOS 6 MG/ML MDV IM SCH (21:30)
[2020-07-13] MEDS ORDERED: LACTATED RINGERS 1,000 ML IV SCH (21:30)
[2020-07-13] MEDS ORDERED: MAGNESIUM SULFATE GM 6 GM in SODIUM CHLORIDE 0.9% 100 ML IVPB STA (21:47)
[2020-07-13] MEDS ORDERED: CALCIUM GLUCONATE 1 GM/10 ML VIAL IV PRN (21:47)
[2020-07-13] MEDS ORDERED: PENICILLIN G POTASSIUM 5,000,000 UNIT in DEXTROSE 5% IN WATER 100 ML IVPB STA ×2 (21:59)
[2020-07-13] MEDS ORDERED: MAGNESIUM SULFATE-WATER PMX 20 GM in WATER FOR INJECTION 1 500ML.BAG IV SCH (22:00)
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
--- NOTE | 2020-07-13 22:07 | P.DS ---
Providers Date of admission: 07/13/2020 Expected date of discharge: 07/13/20 Attending physician: Carolina Dinh Primary care physician: Gurpreet [facility] [place] Course: This is a 30-year-old black female 3 para 1010 EDC 09/10/2020 at 31-4/7 weeks' gestation with a known dichorionic diamniotic twin . She presented with a history of questionable ruptured membranes. Amnio sure testing was negative, however cervix was noted to be 4 cm dilated, 80% effaced, -2 station, vertex presentation. She is sagar on the monitor approximately every 7 minutes apart, but is not cognizant of the contractions. She feels occasional back pain. Fetus is been active throughout the . She denies any vaginal bleeding and no recent intercourse. Please see admitting history and physical for details. I discussed the case with Dr. Gonzalez at [facility]. [facility] is not accepting transfer secondary to unavailability of the intensive care unit. I have given 6 g loading dose magnesium sulfate, then 2 g per hour maintenance dose. We have given betamethasone. We have given penicillin G 5 million units prophylactically. Patient will be transferred via ambulance to [facility] and try. Patient is aware of the risks benefits and alternatives of this plan. In my best medical judgment I feel that the patient is stable for transfer. No cervical change has been noted since her admission here, over the course of greater than an hour. Patient Condition at Discharge: Stable Plan - Discharge Summary Discharge Rx Participant: No New Discharge Prescriptions: No Action Pnv,Calcium 72/Iron/Folic Acid [ Plus Tablet] 1 each PO DAILY Sertraline [Zoloft] 100 mg PO DAILY Multivitamin [Multivitamins Adult Gummies] 1 each PO DAILY Progesterone, Micronized [Progesterone] 200 mg PO DAILY Discharge Medication List Multivitamin [Multivitamins Adult Gummies] 1 each PO DAILY 05/11/20 [History] Pnv,Calcium 72/Iron/Folic Acid [ Plus Tablet] 1 each PO DAILY 05/11/20 [History] Sertraline [Zoloft] 100 mg PO DAILY 05/11/20 [History] Progesterone, Micronized [Progesterone] 200 mg PO DAILY 06/27/20 [History] Discharge Disposition: OTHER INSTITUTION NOT DEFINED
== END 2020-07-13 22:40 | disposition other institution (70) ==
LOC: FBPOP 20:03
PROVIDERS: ATTEND Obstetrics & Gynecology
DX: O60.03 Preterm labor without delivery, third trimester (principal); O30.043 Twin pregnancy, dichorionic/diamniotic, third trimester; Z3A.31 31 weeks gestation of pregnancy; F17.210 Nicotine dependence, cigarettes, uncomplicated; F32.9 Major depressive disorder, single episode, unspecified; O99.333 Smoking (tobacco) complicating pregnancy, third trimester; O99.343 Other mental disorders complicating pregnancy, third trimester
CPT/HCPCS: 59025; 96361; 96365; 96367; 96372; 84112; 85025; G0463; J3475 ×2; J2540; J0702; 99215

== ENCOUNTER 2020-08-01 16:51 | Inpatient (IN) | payer OTHER ==
[2020-08-01] MEDS ORDERED: METHYLERGONOVINE 0.2 MG/ML 1 ML AMP IM PRN (17:06)
[2020-08-01] MEDS ORDERED: OXYTOCIN 10 UNIT/ML 1 ML VIAL IM PRN (17:06)
[2020-08-01] MEDS ORDERED: TERBUTALINE 1 MG/ML VIAL SQ PRN (17:06)
[2020-08-01] MEDS ORDERED: CARBOPROST TROMETHAMINE 250 MCG/ML 1 ML AMP IM PRN (17:06)
[2020-08-01] MEDS ORDERED: LIDOCAINE 0.5% (PF) 5 MG/ML (50 ML SDV) SQ PRN (17:06)
[2020-08-01] MEDS ORDERED: LACTATED RINGERS 1,000 ML IV SCH (17:15)
[2020-08-01 17:30] LABS: Basophils % (A) 0 %; Eosinophils # (A) 0.1 k/uL (0-0.7); Eosinophils % (A) 1 %; HCT 38.8 % (34.0-46.0); HGB 12.5 gm/dL (11.4-16.0); Lymphocytes # (A) 2.2 k/uL (1.0-4.8); Lymphocytes % (A) 18 %; MCH 31.2 pg (25.0-35.0); MCHC 32.2 g/dL (31.0-37.0); MCV 96.7 fL (80.0-100.0); Mean Platelet Volume 8.5; Monocytes # (A) 0.6 k/uL (0-1.0); Monocytes % (A) 5 %; Neutrophils # (A) 9.2 k/uL (1.3-7.7); Neutrophils % (A) 75 %; Platelet Count 279 k/uL (150-450); RBC 4.01 m/uL (3.80-5.40); RDW 13.2 % (11.5-15.5); WBC 12.2 k/uL (3.8-10.6)
--- NOTE | 2020-08-01 17:41 | US ---
EXAMINATION TYPE: US OB limited DATE OF EXAM: 08/01/2020 COMPARISON: NONE CLINICAL HISTORY: position. EXAM PERFORMED: Transabdominal (TA) GESTATIONAL AGE / DATING Physician Established: (34 weeks/2 days) EDC: 09/10/2020 Dates by Current Scan: No growth performed on today?s study per ordering physician SURVEY Baby A: PRESENTATION: Vertex LIE: Longitudinal HEART RATE: 142 bpm RHYTHM: Normal Baby B: PRESENTATION: Vertex LIE: Longitudinal HEART RATE: 128 bpm RHYTHM: Normal Dr Tremp present during US exam IMPRESSION: Limited exam shows twin intrauterine fetuses with both having cephalic presentation.
[2020-08-01] MEDS ORDERED: HYDROCORTISONE 2.5% RECTAL CREAM 30 GM TUBE RECTAL PRN (18:24)
[2020-08-01] MEDS ORDERED: diphenhydrAMINE 50 MG CAP PO PRN (18:24)
[2020-08-01] MEDS ORDERED: diphenhydrAMINE 50 MG/ML 1 ML VIAL IVP PRN ×2 (18:24)
[2020-08-01] MEDS ORDERED: diphenhydrAMINE 25 MG CAP PO PRN (18:24)
[2020-08-01] MEDS ORDERED: IBUPROFEN 600 MG TAB PO PRN (18:24)
[2020-08-01] MEDS ORDERED: ZOLPIDEM 5 MG TAB PO PRN (18:24)
[2020-08-01] MEDS ORDERED: SIMETHICONE 80 MG CHEWABLE PO PRN (18:24)
[2020-08-01] MEDS ORDERED: LANOLIN CREAM 5 GM TUBE TOPICAL PRN (18:24)
[2020-08-01] MEDS ORDERED: BENZOCAINE/MENTHOL SPRAY 1 GM/SPRAY AEROSOL TOPICAL PRN (18:24)
[2020-08-01] MEDS ORDERED: ACETAMINOPHEN TAB 325 MG TAB PO PRN (18:24)
[2020-08-01] MEDS ORDERED: OXYTOCIN 20 UNITS/1000 ML NS 1,000 ML IV SCH (18:30)
--- NOTE | 2020-08-01 18:35 | P.HPOB ---
History of Present Illness H&P Date: 08/01/20 Chief Complaint: Twin gestation at 34 and 2/sevenths weeks, labor This is a 30-year-old 3 para 1010 at 34-2/7 weeks estimated date of confinement 09/10/20 based on 8 week ultrasound. Patient has been receiving routine care with Dr. Croft and [facility] given history of shortened cervix with funneling. Patient has a known history of a term demise in addition. Patient is a tobacco smoker. Patient was seen at [facility] yesterday noting babies to be in vertex vertex presentation. Patient states they offered to keep and monitor her and sh e declined. Patient states she started sagar this morning irregularly but when the contractions started to become longer in duration she decided to come to the hospital. Upon presentation she was noted to be 8/100/0 station. She did deny vaginal bleeding or loss of fluid. She noted good movement 2. Patient received betamethasone on 07/16 per patient. On bloodwork patient is blood type of A+, rubella status immune, RPR nonreactive, hepatitis B surface antigen negative, HIV was declined. She did pass her gestational diabetes screen. Review of Systems Constitutional: Denies chills, Denies fatigue, Denies fever Ears, nose, mouth and throat: Denies headache Cardiovascular: Reports leg edema Respiratory: Denies dyspnea Gastrointestinal: Denies constipation, Denies diarrhea, Denies nausea, Denies vomiting Genitourinary: Reports Past Medical History Past Medical History: No Reported History Additional Past Medical History / Comment(s): Depression History of Any Multi-Drug Resistant Organisms: None Reported Past Surgical History: Adenoidectomy Additional Past Surgical History / Comment(s): HX LEEP SURGERY, D&C Past Anesthesia/Blood Transfusion Reactions: No Reported Reaction Smoking Status: Current every day smoker - Past Family History Mother Family Medical History: No Reported History Medications and Allergies Home Medications Medication Instructions Recorded Confirmed Type Multivitamin [Multivitamins Adult 1 each PO DAILY 05/11/20 07/27/20 History Gummies] Pnv,Calcium 72/Iron/Folic Acid 1 each PO DAILY 05/11/20 07/27/20 History [ Plus Tablet] Sertraline [Zoloft] 100 mg PO DAILY 05/11/20 07/27/20 History Progesterone, Micronized 400 mg PO DAILY 06/27/20 07/27/20 History [Progesterone] Allergies Allergy/AdvReac Type Severity Reaction Status Date / Time amoxicillin Allergy Itching Verified 08/01/20 17:06 Exam Osteopathic Statement: *. No significant issues noted on an osteopathic structural exam other than those noted in the History and Physical/Consult. 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 Breathing is noted to be nonlabored, heart has a regular rate and rhythm, abdomen is gravid, heart tones are noted to be reassuring 2 ultrasound is in the room documenting vertex vertex presentation. On cervical exam she is 9/100/+1 station Results Result Diagrams: 08/01/20 17:15 Abnormal Lab Results - Last 24 Hours (Table) 08/01/20 Range/Units 17:15 WBC 12.2 H (3.8-10.6) k/uL Neutrophils # 9.2 H (1.3-7.7) k/uL Assessment and Plan (1) Twin gestation in third trimester Current Visit: Yes Status: Acute Code(s): O30.003 - TWIN PREG, UNSP NUM PLCNTA & AMNIO SACS, THIRD TRIMESTER SNOMED Code(s): 25133937 (2) Active labor Current Visit: Yes Status: Acute Code(s): ENW4499 - SNOMED Code(s): 641543349 (3) 34 weeks gestation of Current Visit: Yes Status: Acute Code(s): Z3A.34 - 34 WEEKS GESTATION OF SNOMED Code(s): 80841560 (4) Normal spontaneous vaginal delivery Current Visit: No Status: Acute Code(s): O80 - ENCOUNTER FOR FULL-TERM UNCOMPLICATED DELIVERY SNOMED Code(s): 63928628 Plan: This 30-year-old with known twin dye dye gestation at 34-2/7 weeks presents to labor and delivery with complaints of regular painful contractions. Patient has been noted 8 cm upon presentation to labor and delivery. Patient was counseled on vaginal delivery as babies were noted to be vertex/vertex. Patient wishes to proceed. We will proceed to operating suite. Patient is counseled on the possibility of emergent if baby B is noted to be in distress or changes position. Patient states understanding and wishes to proceed. Patient declines epidural or Stadol.
--- NOTE | 2020-08-01 18:39 | P.PROBDLV ---
Vaginal Delivery Note - . Vaginal Delivery Note: This 30-year-old 3 para 1010 presents to labor and delivery at 34-2/7 weeks with complaints of contractions. Patient was noted to be 8 cm upon presentation. Patient is a known twin gestation with di/di placentation. Patient was taken back to the operating suite when she was noted to be 9 cm. The OR suite was set up with /vaginal delivery in the case of needed emergent after delivery of baby A. Patient was noted to be completely dilated amniotomy was performed clear fluid was obtained baby A was noted to be in vertex presentation and with 2 strong maternal efforts was delivered in the usual fashion. The local cord was doubly clamped and cut and the was handed off to awaiting RN. Infant B was then noted to be high in the uterus, vertex presentation with one contraction B was noted to be -1 station, amniotomy is performed clear fluid was obtained, with the next contraction and a strong maternal effort B was delivered in the usual fashion. The umbilical cord was doubly clamped and cut and infant B was handed off to awaiting RN. The placentas were then delivered spontaneously intact with a three-vessel cord x2. Uterus is noted to be firm and at the umbilicus. Estimated blood loss 200 mL On inspection the patient's vaginal vault no lacerations were noted. All counts are correct 2 at the end of delivery Patient and infants tolerated delivery well.
[2020-08-01] MEDS: SENNOSIDES-DOCUSATE SODIUM 1 EACH TAB PO SCH (21:01)
--- NOTE | 2020-08-02 04:22 | P.DS ---
Providers Date of admission: 08/01/20 17:00 Expected date of discharge: 08/02/20 Attending physician: Judy Hernandez Primary care physician: Stated None - Discharge Diagnosis(es) (1) Twin gestation in third trimester Current Visit: Yes Status: Acute (2) Active labor Current Visit: Yes Status: Acute (3) 34 weeks gestation of Current Visit: Yes Status: Acute (4) Normal spontaneous vaginal delivery Current Visit: No Status: Acute Hospital Course: This is a 22-year-old 3 para 1010 that presented to labor and delivery at 34-2/7 weeks with an estimated due date of 09/10. Patient is a known twin di/di gestation and has been followed closely for a shortened cervix. Patient was noted to be 8 cm on presentation to the hospital. Patient was taken back to the operating suite was noted to be completely dilated a was delivered at 1758, weight of 2175 gms, B delivered at 1804, weight of 2104gms. patient did not sustain any vaginal lacerations during delivery. 's were transferred to children's secondary to gestational age. Patient's course has been uneventful so far her lochia has been moderate, her pain is we ll-controlled. She would like discharge home as soon as possible due to infant transferred. She is pumping and getting a small amount of colostrum at this time. She is ambulating and voiding without difficulty, tolerating regular diet without nausea or vomiting. Patient Condition at Discharge: Good Plan - Discharge Summary New Discharge Prescriptions: No Action Pnv,Calcium 72/Iron/Folic Acid [ Plus Tablet] 1 each PO DAILY Sertraline [Zoloft] 100 mg PO DAILY Multivitamin [Multivitamins Adult Gummies] 1 each PO DAILY Progesterone, Micronized [Progesterone] 400 mg PO DAILY Discharge Medication List Multivitamin [Multivitamins Adult Gummies] 1 each PO DAILY 05/11/20 [History] Pnv,Calcium 72/Iron/Folic Acid [ Plus Tablet] 1 each PO DAILY 05/11/20 [History] Sertraline [Zoloft] 100 mg PO DAILY 05/11/20 [History] Progesterone, Micronized [Progesterone] 400 mg PO DAILY 06/27/20 [History] Follow up Appointment(s)/Referral(s): Gurpreet Croft MD [STAFF PHYSICIAN] - 6 Weeks Patient Instructions/Handouts: Vaginal Delivery (DC), Vaginal Delivery (GEN) Discharge Disposition: HOME SELF-CARE
[2020-08-02 04:43] VITALS: RESP 18
[2020-08-02 08:27] VITALS: BP 114/77; PULSE 76; TEMP 97.8
[2020-08-02] MEDS: SENNOSIDES-DOCUSATE SODIUM 1 EACH TAB PO SCH (08:28)
== END 2020-08-02 10:18 | disposition home or self-care (01) | DRG 806 ==
LOC: FBPOP 16:51 → 4FBP 17:00
PROVIDERS: ADMIT Obstetrics & Gynecology Obstetrics; ATTEND Obstetrics & Gynecology Obstetrics
PROC: 10E0XZZ Delivery of Products of Conception, External Approach (ICD-10-PCS; principal; 2020-08-01)
PROC: 10907ZC Drainage of Amniotic Fluid, Therapeutic from Products of Conception, Via Natural or Artificial Opening (ICD-10-PCS; 2020-08-01)
DX: O30.043 Twin pregnancy, dichorionic/diamniotic, third trimester (principal); O26.873 Cervical shortening, third trimester; Z37.2 Twins, both liveborn; O99.343 Other mental disorders complicating pregnancy, third trimester; F17.200 Nicotine dependence, unspecified, uncomplicated; O99.334 Smoking (tobacco) complicating childbirth; F32.9 Major depressive disorder, single episode, unspecified; Z3A.34 34 weeks gestation of pregnancy; Z79.899 Other long term (current) drug therapy; Z87.59 Personal history of other complications of pregnancy, childbirth and the puerperium; Z88.0 Allergy status to penicillin
CPT/HCPCS: 76815; 85025; 86850; 86900; 86901

== ENCOUNTER 2020-11-01 07:22 | Emergency (ER) | payer OTHER ==
[2020-11-01 07:27] VITALS: RESP 18; TEMP 98.4
[2020-11-01] MEDS ORDERED: SODIUM CHLORIDE 0.9% 500 ML 500 ML IV STA (07:43)
[2020-11-01] MEDS ORDERED: SODIUM CHLORIDE 0.9% 1,000 ML IV STA (07:43)
--- NOTE | 2020-11-01 07:46 | ED ---
Abdominal Pain HPI - General Chief Complaint: Abdominal Pain Stated Complaint: Abdominal Pain Time Seen by Provider: 11/01/20 07:39 Source: patient, RN notes reviewed Mode of arrival: ambulatory Limitations: no limitations - History of Present Illness Initial Comments: This is a 30-year-old female presents emergency from chief complaint abdominal pain, diarrhea. Patient states she's been having loose stools for over 3 months she states it started presented for . Patient states she delivered 3 months ago when vaginally. Patient denies any vaginal bleeding or discharge. Patient states that she had a bowel movement morning states that she started having increased abdominal pain, rectal pain denies any bleeding hemorrhoids. Patient states that she feels like she has to urinate but has not urinated this morning. Patient denies any fevers or chills no nausea vomiting no prior abdominal surgeries. - Related Data Home Medications Medication Instructions Recorded Confirmed Multivitamin [Multivitamins Adult 1 each PO DAILY 05/11/20 07/27/20 Gummies] Pnv,Calcium 72/Iron/Folic Acid 1 each PO DAILY 05/11/20 07/27/20 [ Plus Tablet] Sertraline [Zoloft] 100 mg PO DAILY 05/11/20 07/27/20 Progesterone, Micronized 400 mg PO DAILY 06/27/20 07/27/20 [Progesterone] Previous Rx's Medication Instructions Recorded Ibuprofen [Motrin] 600 mg PO Q8HR PRN #20 tab 11/01/20 Allergies Allergy/AdvReac Type Severity Reaction Status Date / Time amoxicillin Allergy Itching Verified 11/01/20 07:27 Review of Systems ROS Statement: Those systems with pertinent positive or pertinent negative responses have been documented in the HPI. ROS Other: All systems not noted in ROS Statement are negative. Past Medical History Past Medical History: No Reported History Additional Past Medical History / Comment(s): Depression History of Any Multi-Drug Resistant Organisms: None Reported Past Surgical History: Adenoidectomy Additional Past Surgical History / Comment(s): HX LEEP SURGERY, D&C Past Anesthesia/Blood Transfusion Reactions: No Reported Reaction Past Psychological History: ADD/ADHD, Anxiety, Bipolar, Depression Smoking Status: Current every day smoker Past Alcohol Use History: None Reported Past Drug Use History: Marijuana - Past Family History Mother Family Medical History: No Reported History General Exam Limitations: no limitations General appearance: alert, in no apparent distress Head exam: Present: atraumatic, normocephalic, normal inspection Eye exam: Present: normal appearance, PERRL, EOMI. Absent: scleral icterus, conjunctival injection, periorbital swelling ENT exam: Present: normal exam, normal oropharynx, mucous membranes moist Neck exam: Present: normal inspection, full ROM. Absent: tenderness, meningismus, lymphadenopathy Respiratory exam: Present: normal lung sounds bilaterally. Absent: respiratory distress, wheezes, rales, rhonchi, stridor Cardiovascular Exam: Present: regular rate, normal rhythm, normal heart sounds. Absent: systolic murmur, diastolic murmur, rubs, gallop, clicks GI/Abdominal exam: Present: soft, tenderness (Mild to moderate lower), normal bowel sounds. Absent: distended, guarding, rebound, rigid Back exam: Absent: CVA tenderness (R), CVA tenderness (L) Neurological exam: Present: alert Skin exam: Present: warm, dry, intact, normal color. Absent: rash Course Vital Signs 11/01/20 07:24 Temperature 98.4 F Pulse Rate 78 Respiratory 18 Rate Blood Pressure 115/74 O2 Sat by Pulse 98 Oximetry Medical Decision Making - Medical Decision Making 30-year-old female presents abdominal pain CT shows evidence of ovarian cyst with free fluid was likely rupture. Patient's symptoms are improving without pain medications. There is no concern for ovarian torsion at this time. Labwork reviewed no sick family. Patient does have some mild diarrhea this is an ongoing. Patient will follow-up with GI and return parameters were discussed. - Lab Data Result diagrams: 11/01/20 07:59 11/01/20 07:59 Lab Results 11/01/20 11/01/20 11/01/20 Range/Units 07:50 07:50 07:59 WBC 11.4 H (3.8-10.6) k/uL RBC 4.49 (3.80-5.40) m/uL Hgb 13.9 (11.4-16.0) gm/dL Hct 41.5 (34.0-46.0) % MCV 92.3 (80.0-100.0) fL MCH 31.0 (25.0-35.0) pg MCHC 33.6 (31.0-37.0) g/dL RDW 13.6 (11.5-15.5) % Plt Count 259 (150-450) k/uL MPV 7.6 Neutrophils % 72 % Lymphocytes % 20 % Monocytes % 3 % Eosinophils % 3 % Basophils % 1 % Neutrophils # 8.2 H (1.3-7.7) k/uL Lymphocytes # 2.3 (1.0-4.8) k/uL Monocytes # 0.3 (0-1.0) k/uL Eosinophils # 0.4 (0-0.7) k/uL Basophils # 0.1 (0-0.2) k/uL Sodium (137-145) mmol/L Potassium (3.5-5.1) mmol/L Chloride (98-107) mmol/L Carbon Dioxide (22-30) mmol/L Anion Gap mmol/L BUN (7-17) mg/dL Creatinine (0.52-1.04) mg/dL Est GFR (CKD-EPI)AfAm (>60 ml/min/1.73 sqM) Est GFR (CKD-EPI)NonAf (>60 ml/min/1.73 sqM) Glucose (74-99) mg/dL Plasma Lactic Acid Flip (0.7-2.0) mmol/L Calcium (8.4-10.2) mg/dL Total Bilirubin (0.2-1.3) mg/dL AST (14-36) U/L ALT (4-34) U/L Alkaline Phosphatase (38-126) U/L Total Protein (6.3-8.2) g/dL Albumin (3.5-5.0) g/dL Amylase (30-110) U/L Lipase (23-300) U/L Urine Color Yellow Urine Appearance Cloudy H (Clear) Urine pH 6.0 (5.0-8.0) Ur Specific [place] 1.022 (1.001-1.035) Urine Protein Negative (Negative) Urine Glucose (UA) Negative (Negative) Urine Ketones Negative (Negative) Urine Blood Negative (Negative) Urine Nitrite Negative (Negative) Urine Bilirubin Negative (Negative) Urine Urobilinogen <2.0 (<2.0) mg/dL Ur Leukocyte Esterase Negative (Negative) Urine RBC 2 (0-5) /hpf Urine WBC 2 (0-5) /hpf Ur Squamous Epith Cells 6 H (0-4) /hpf Urine Bacteria Rare H (None) /hpf Urine Mucus Few H (None) /hpf Urine HCG, Qual Not Detected (Not Detectd) 11/01/20 11/01/20 Range/Units 07:59 07:59 WBC (3.8-10.6) k/uL RBC (3.80-5.40) m/uL Hgb (11.4-16.0) gm/dL Hct (34.0-46.0) % MCV (80.0-100.0) fL MCH (25.0-35.0) pg MCHC (31.0-37.0) g/dL RDW (11.5-15.5) % Plt Count (150-450) k/uL MPV Neutrophils % % Lymphocytes % % Monocytes % % Eosinophils % % Basophils % % Neutrophils # (1.3-7.7) k/uL Lymphocytes # (1.0-4.8) k/uL Monocytes # (0-1.0) k/uL Eosinophils # (0-0.7) k/uL Basophils # (0-0.2) k/uL Sodium 140 (137-145) mmol/L Potassium 4.1 (3.5-5.1) mmol/L Chloride 111 H (98-107) mmol/L Carbon Dioxide 23 (22-30) mmol/L Anion Gap 6 mmol/L BUN 12 (7-17) mg/dL Creatinine 0.81 (0.52-1.04) mg/dL Est GFR (CKD-EPI)AfAm >90 (>60 ml/min/1.73 sqM) Est GFR (CKD-EPI)NonAf >90 (>60 ml/min/1.73 sqM) Glucose 94 (74-99) mg/dL Plasma Lactic Acid Flip 1.0 (0.7-2.0) mmol/L Calcium 9.2 (8.4-10.2) mg/dL Total Bilirubin 0.3 (0.2-1.3) mg/dL AST 17 (14-36) U/L ALT 10 (4-34) U/L Alkaline Phosphatase 53 (38-126) U/L Total Protein 7.3 (6.3-8.2) g/dL Albumin 4.1 (3.5-5.0) g/dL Amylase 53 (30-110) U/L Lipase 66 (23-300) U/L Urine Color Urine Appearance (Clear) Urine pH (5.0-8.0) Ur Specific [place] (1.001-1.035) Urine Protein (Negative) Urine Glucose (UA) (Negative) Urine Ketones (Negative) Urine Blood (Negative) Urine Nitrite (Negative) Urine Bilirubin (Negative) Urine Urobilinogen (<2.0) mg/dL Ur Leukocyte Esterase (Negative) Urine RBC (0-5) /hpf Urine WBC (0-5) /hpf Ur Squamous Epith Cells (0-4) /hpf Urine Bacteria (None) /hpf Urine Mucus (None) /hpf Urine HCG, Qual (Not Detectd) Disposition Clinical Impression: Abdominal pain, Diarrhea, Ovarian cyst rupture Disposition: HOME SELF-CARE Condition: Stable Instructions (If sedation given, give patient instructions): Ruptured Ovarian Cyst (ED) Additional Instructions: Please return to the Emergency Department if symptoms worsen or any other concerns. Prescriptions: Ibuprofen [Motrin] 600 mg PO Q8HR PRN #20 tab PRN Reason: Pain Is patient prescribed a controlled substance at d/c from ED?: No Referrals: Costa Light MD [Primary Care Provider] - 1-2 days Rosina Dubon MD [STAFF PHYSICIAN] - 1-2 days Time of Disposition: 09:36
[2020-11-01 08:04] LABS: Appearance,Urine Cloudy (Clear); Bacteria,Urine Rare /hpf; Bilirubin,Urine Negative (Negative); Blood,Urine Negative (Negative); Color,Urine Yellow; Glucose,Urine (UA) Negative (Negative); Ketones,Urine Negative (Negative); Leukocyte Esterase,Urine Negative (Negative); Mucus,Urine Few /hpf; Nitrite,Urine Negative (Negative); Protein,Urine Negative (Negative); RBC,Urine 2 /hpf (0-5); Specific Gravity,Urine 1.022 (1.001-1.035); Squamous Epithelial Cell,Urine 6 /hpf (0-4); Urobilinogen,Urine <2.0 mg/dL (<2.0); WBC,Urine 2 /hpf (0-5)
[2020-11-01 08:06] LABS: Basophils # (A) 0.1 k/uL (0-0.2); Basophils % (A) 1 %; Eosinophils # (A) 0.4 k/uL (0-0.7); Eosinophils % (A) 3 %; HCT 41.5 % (34.0-46.0); HGB 13.9 gm/dL (11.4-16.0); Lymphocytes # (A) 2.3 k/uL (1.0-4.8); Lymphocytes % (A) 20 %; MCHC 33.6 g/dL (31.0-37.0); MCV 92.3 fL (80.0-100.0); Mean Platelet Volume 7.6; Monocytes # (A) 0.3 k/uL (0-1.0); Monocytes % (A) 3 %; Neutrophils # (A) 8.2 k/uL (1.3-7.7); Neutrophils % (A) 72 %; Platelet Count 259 k/uL (150-450); RBC 4.49 m/uL (3.80-5.40); RDW 13.6 % (11.5-15.5); WBC 11.4 k/uL (3.8-10.6)
[2020-11-01 08:15] LABS: ALT 10 U/L (4-34); AST 17 U/L (14-36); African American GFR (CKD) >90 (>60 ml/min/1.73 sqM); Albumin 4.1 g/dL (3.5-5.0); Alkaline Phosphatase 53 U/L (38-126); Amylase 53 U/L (30-110); Anion Gap 6 mmol/L; Blood Urea Nitrogen 12 mg/dL (7-17); Calcium 9.2 mg/dL (8.4-10.2); Carbon Dioxide 23 mmol/L (22-30); Chloride 111 mmol/L (98-107); Glucose 94 mg/dL (74-99); Lipase 66 U/L (23-300); Non-African American GFR(CKD) >90 (>60 ml/min/1.73 sqM); Potassium 4.1 mmol/L (3.5-5.1); Sodium 140 mmol/L (137-145); Total Bilirubin 0.3 mg/dL (0.2-1.3); Total Protein 7.3 g/dL (6.3-8.2)
--- NOTE | 2020-11-01 09:25 | CT ---
EXAMINATION TYPE: CT abdomen pelvis w con DATE OF EXAM: 11/01/2020 COMPARISON: None INDICATION: lower abd pain DLP: 1121.1 mGycm, Automated exposure control for dose reduction was used. CONTRAST: 100 mL of Isovue 300. Study performed without Oral Contrast TECHNIQUE: Axial images were obtained from above the diaphragm to the pubic rami in the axial plane a t 5 mm thick sections. Reconstructed images are reviewed on the computer in the coronal plane. FINDINGS: Limited CT sections are obtained the lung bases. The lung bases are clear. CT ABDOMEN: Liver: Normal Spleen: Normal Pancreas: Normal Adrenal glands: The adrenal glands are normal. Gallbladder: Normal Kidneys: No masses are evident. No hydronephrosis is present. No cysts are present. Delayed images were obtained through the kidneys, which remain unremarkable. Aorta: Normal Inferior vena cava: Normal. CT PELVIS: Loops of bowel within the abdomen and pelvis are normal. The studies without oral contrast limiti ng bowel evaluation. Appendix: Normal and air-filled as visualized. Urinary bladder: Normal. Genitourinary structures: Uterus is normal. There is a 4.3 cm left ovarian cyst. Small to moderate fr ee fluid is within the pelvis. Osseous structures: No suspicious lytic or sclerotic lesions. IMPRESSIONS: 1. 4.3 cm left ovarian cyst moderate free fluid within the pelvis. 2. Normal appendix
[2020-11-01 10:01] VITALS: BP 131/83; PULSE 64
== END 2020-11-01 10:00 | disposition home or self-care (01) ==
LOC: EC 07:22
DX: N83.292 Other ovarian cyst, left side (principal); R19.7 Diarrhea, unspecified; F41.9 Anxiety disorder, unspecified; F31.9 Bipolar disorder, unspecified; F90.9 Attention-deficit hyperactivity disorder, unspecified type; Z79.899 Other long term (current) drug therapy; F17.200 Nicotine dependence, unspecified, uncomplicated; Z88.0 Allergy status to penicillin; Z90.89 Acquired absence of other organs
CPT/HCPCS: 36415; 80053; 82150; 83605; 83690; 85025; 81001; 81025; 74177; 99284; 96360; Q9967